=== PATIENT | female | born 1965 | race Hispanic/Latino ===

== ENCOUNTER → 2024-03-12 | Outpatient (REF) | payer BC ==
[~2024-03-12] MED LIST: ADDERALL 20 MG20 MG PO; ALPRAZOLAM1 MG PO; BREO ELLIPTA 21 EACH INH; HYDROCODON-ACE1 EAC9 PO; LEVAQUIN500 MG PO; NAPROSYN500 MG PO; PROZAC20 MG PO; TRAZODONE HCL100 MG PO; TYLENOL WITH C1 EACH PO; WEGOVY0.25 MG/0. SQ; ZOLOFT50 MG PO
== END ==
LOC: MAMMO 06:28
PROVIDERS: ATTEND Family Medicine
DX: Z12.31 Encounter for screening mammogram for malignant neoplasm of breast (principal)
CPT/HCPCS: 77067

== ENCOUNTER → 2024-03-18 | Outpatient (REF) | payer BC | LOC: LAB 06:25 | PROVIDERS: ATTEND Nurse Practitioner Family | DX: Z00.00 Encounter for general adult medical examination without abnormal findings (principal); Z13.1 Encounter for screening for diabetes mellitus; E55.9 Vitamin D deficiency, unspecified ==

== ENCOUNTER → 2025-01-18 | Outpatient (REF) | payer BC ==
[2025-01-18 06:44] LABS: BASOPHILS % 0.4 % (0.0-1.0); EOSINOPHILS % 2.6 % (0.0-6.0); LYMPHOCYTES % 39.5 % (18.0-39.1); MONOCYTES % 6.8 % (4.4-11.3); NEUTROPHILS % 50.7 % (38.7-80.0); RED CELL DISTRIBUTION WIDTH 13.2 % (11.7-14.4)
[2025-01-18 07:47] LABS: EST GLOMERULAR FILTRATION RATE 101.0 ML/MIN (>=60)
[2025-01-19 05:14] LABS: T3 (TRIIODOTHYRONINE) 113.0 ng/dL (71-180)
== END ==
LOC: LAB 06:09
PROVIDERS: ATTEND Family Medicine
DX: I10 Essential (primary) hypertension (principal); E78.2 Mixed hyperlipidemia; E55.9 Vitamin D deficiency, unspecified
CPT/HCPCS: 36415; 80053; 84436; 84443; 84480; 85025